=== PATIENT | female | born 1950 | race Caucasian/White ===

== ENCOUNTER → 2018-03-27 18:11 | Outpatient (REF) | payer MEDICARE, SELFPAY ==
[2018-03-27 18:40] LABS: Bilirubin Negative (Negative); Blood Negative (Negative); Clarity Clear; Glucose Negative (Negative); Ketones Negative (Negative); Leukocyte Esterase Trace (Negative); Nitrite Negative (Negative); Urobilinogen 0.2 EU/dL (Up TO 0.2)
[2018-03-27 19:00] LABS: Epithelial Cells Few HPF (Negative); RBC 0-2 (0-2); WBC >50 HPF (0-5)
[2018-03-27 19:01] LABS: Bacteria Moderate HPF (Negative); C & S Indicated? Yes; Casts Negative LPF (Negative); Crystals Negative HPF (Negative); Mucus Negative (Negative)
== END ==
LOC: LBN 18:11
DX: R30.0 Dysuria (principal)
CPT/HCPCS: 87077; 81003; 81015; 87086; 87186

== ENCOUNTER 2018-04-25 02:38 | Outpatient (CLI) | payer MEDICARE, SELFPAY ==
[2018-04-25 08:38] LABS: HCT 35.9 % (36.0-46.0); HGB 11.3 g/dL (12.0-15.5); Mean Corp. HGB Concentration 31.5 g/dL (32.0-36.0); Mean Corpuscular Hemoglobin 21.5 pg (27.0-33.0); Mean Corpuscular Volume 68.4 fL (80-95); Mean Platelet Volume 12.5 fL (8.0-11.0); RBC 5.25 m/cumm (4.00-5.20); RBC Distribution Width 16.7 % (11.7-14.6); White Blood Cell Count 7.19 k/cumm (4.4-10.8)
[2018-04-25 08:46] LABS: Platelet Count 234 x1000/uL (130-400)
[2018-04-25 09:01] LABS: Microalb ug/mg Crea 37.6 ug/mg Cr
[2018-04-25 09:03] LABS: ALT 29 U/L (12-78); AST 21 U/L (15-37); Albumin 3.5 g/dL (3.4-5.0); Alkaline Phosphatase 97 U/L (46-116); Anion Gap 6.8 mmol/L (3-11); BUN 13 mg/dL (7-18); Bilirubin, Total 0.7 mg/dL (0.2-1.0); CO2 31.2 mmol/L (21.0-32.0); CREATININE 0.74 mg/dL (0.55-1.02); Calcium 8.8 mg/dL (8.5-10.1); Chloride 101 mmol/L (98-107); Glucose 123 mg/dL (70-100); Lipase 165 U/L (73-393); Sodium 139 mmol/L (136-145); Total Protein 6.9 g/dL (6.4-8.2)
[2018-04-25 09:19] LABS: Hemoglobin A1C 6.7 % (4.5-6.2)
[2018-04-25 09:24] LABS: Cholesterol 211 mg/dL (50-200); HDL Cholesterol 47 mg/dL (40-60); LDL CHOLESTEROL 143 mg/dL (<100); Triglyceride 135 mg/dL (30-150)
== END 2018-04-25 02:58 ==
DX: E11.9 Type 2 diabetes mellitus without complications (principal); E78.5 Hyperlipidemia, unspecified; F32.9 Major depressive disorder, single episode, unspecified; G47.33 Obstructive sleep apnea (adult) (pediatric); R53.83 Other fatigue; K21.9 Gastro-esophageal reflux disease without esophagitis; L57.0 Actinic keratosis
CPT/HCPCS: 36415; 80053; 80061; 83690; 83721; 85027; 82043; 82570; 83036

== ENCOUNTER 2019-04-02 01:13 | Outpatient (CLI) | payer OTHER, SELFPAY ==
[2019-04-02 10:23] LABS: Hemoglobin A1C 6.5 % (4.5-6.2)
[2019-04-02 10:31] LABS: ALT 30 U/L (14-59); AST 21 U/L (15-37); Albumin 3.6 g/dL (3.4-5.0); Alkaline Phosphatase 90 U/L (46-116); Anion Gap 7.3 mmol/L (3-11); BUN 12 mg/dL (7-18); Bilirubin, Total 0.6 mg/dL (0.2-1.0); CO2 31.7 mmol/L (21.0-32.0); CREATININE 0.84 mg/dL (0.55-1.02); Calcium 9.2 mg/dL (8.5-10.1); Chloride 101 mmol/L (98-107); Glucose 126 mg/dL (70-100); Potassium 4.2 mmol/L (3.5-5.1); Sodium 140 mmol/L (136-145); Total Protein 7.3 g/dL (6.4-8.2)
== END 2019-04-02 01:33 ==
DX: E03.9 Hypothyroidism, unspecified (principal); E11.9 Type 2 diabetes mellitus without complications; E78.5 Hyperlipidemia, unspecified; F32.9 Major depressive disorder, single episode, unspecified; G47.33 Obstructive sleep apnea (adult) (pediatric); K21.9 Gastro-esophageal reflux disease without esophagitis; R53.83 Other fatigue
CPT/HCPCS: 36415; 80053; 83036

== ENCOUNTER 2019-04-24 01:05 | Outpatient (CLI) | payer OTHER, SELFPAY ==
--- NOTE | 2019-04-24 13:24 | DI.MAMMO_ITS ---
EXAM: MAMMO SCREENING CLINICAL HISTORY: screening, Z12.39. TECHNIQUE: Mammograms were interpreted according to the usual protocol including computer analysis w See[employer] CAD system, tomosynthesis and C-view imaging. COMPARISON: Comparison is made with prior images. FINDINGS: The breast tissue is composed of numerous fibronodular densities. There is no dominant mass. There a re no suspicious calcifications and there has been no appreciable interval change when compared with prior images. IMPRESSION: No evidence of malignancy, category 1. Yearly screening mammography is recommended. BI-RADS category B. BI-RADS Cat 1 - Negative. Breast Density - Category B - Scattered areas of fibroglandular density.
== END 2019-04-24 01:25 ==
DX: Z12.31 Encounter for screening mammogram for malignant neoplasm of breast (principal)
CPT/HCPCS: 77063; 77067

== ENCOUNTER 2020-04-13 03:40 | Outpatient (CLI) | payer OTHER, SELFPAY ==
[2020-04-13 10:32] LABS: Hemoglobin A1C 6.9 % (<5.7)
[2020-04-13 10:54] LABS: ALT 31 U/L (14-59); AST 18 U/L (15-37); Albumin 3.8 g/dL (3.4-5.0); Alkaline Phosphatase 89 U/L (46-116); Anion Gap 5.8 mmol/L (3-11); BUN 14 mg/dL (7-18); Bilirubin, Total 0.4 mg/dL (0.2-1.0); CO2 32.2 mmol/L (21.0-32.0); CREATININE 0.83 mg/dL (0.55-1.02); Calcium 9.2 mg/dL (8.5-10.1); Calculated LDL 145 mg/dL (<100); Chloride 103 mmol/L (98-107); Cholesterol 217 mg/dL (<200); Glucose 143 mg/dL (74-106); HDL Cholesterol 49 mg/dL (40-60); Potassium 4.2 mmol/L (3.5-5.1); Sodium 141 mmol/L (136-145); Total Protein 7.2 g/dL (6.4-8.2); Triglyceride 115 mg/dL (<150)
== END 2020-04-13 04:00 ==
DX: I10 Essential (primary) hypertension (principal); Z00.00 Encounter for general adult medical examination without abnormal findings; E78.5 Hyperlipidemia, unspecified; E11.9 Type 2 diabetes mellitus without complications; R53.83 Other fatigue; G47.33 Obstructive sleep apnea (adult) (pediatric); H91.90 Unspecified hearing loss, unspecified ear; E03.9 Hypothyroidism, unspecified; K21.9 Gastro-esophageal reflux disease without esophagitis
CPT/HCPCS: 36415; 80053; 80061; 83036

== ENCOUNTER 2020-05-05 00:49 | Outpatient (CLI) | payer OTHER, SELFPAY ==
--- NOTE | 2020-05-05 07:30 | DI.MAMMO_ITS ---
EXAM: MAMMO SCREENING CLINICAL HISTORY: screening,Z12.39 TECHNIQUE: Mammograms were interpreted according to the usual protocol including computer analysis w [employer] CAD system, tomosynthesis and C-view imaging. COMPARISON: FINDINGS: Breasts are of moderate density with fairly symmetrical distribution of fibroglandular tissue. No do minant intramammary mass or clumped microcalcification is seen. Current examination is compared with previous examinations including March 2019 and there is new radiodensity which is probably a ski n lesion measuring about 14 millimeters in diameter in the medial inferior aspect of the right breast seen on CC and MLO views. I cannot entirely exclude the possibility that this represents a new intr amammary lesion. I would suggest that tangential view of this area be obtained with skin marker, judith ast ultrasound and compression mammographic views may also be indicated. No other significant change seen. IMPRESSION: Additional mammographic views of the right breast and possible right breast ultrasound recommended as described above to evaluate skin lesion versus intramammary mass. BI-RADS Category 0 - Assessment Incomplete: Need additional imaging evaluation Breast Density - Category B - Scattered areas of fibroglandular density
== END 2020-05-05 01:09 ==
DX: Z12.31 Encounter for screening mammogram for malignant neoplasm of breast (principal); R92.8 Other abnormal and inconclusive findings on diagnostic imaging of breast
CPT/HCPCS: 77063; 77067

== ENCOUNTER 2020-05-07 01:11 | Outpatient (CLI) | payer OTHER, SELFPAY ==
--- NOTE | 2020-05-07 | DI.MAMMO_ITS ---
EXAM: MG MAMMO SCREEN CALL BACK UNI AND US BREAST RT LIMITED CLINICAL HISTORY: F/U MAMMO, NEW RADIODENSITY,? SKIN LESION VS MASS TECHNIQUE: Mammograms were interpreted according to the usual protocol including computer analysis w ith CAD system, tomosynthesis and C-view imaging. COMPARISON: 05/05/20 MAMMOGRAM FINDINGS: Additional mammographic views, right breast, and right breast ultrasound are interpreted in conjuncti on. These examinations were obtained to evaluate a well-circumscribed elongated mass-like radiodensi ty seen in the medial aspect of the right breast on recent mammogram. Tangential views do not show t his near the skin surface; however, additional views do confirm the presence of the lobulated mass wi th well-circumscribed borders, which is of fairly low radiodensity mammographically. Ultrasound show s a 15 x 4 millimeter in diameter multiloculated cyst corresponding in appearance to the mammographic ally identified findings. This is seen in approximately the 1 to 2 o'clock position in the breast. No solid mass identified in the breast. No increased vascularity. IMPRESSION: Ultrasonographically benign-appearing lesion appears to correspond with the mammographically identifi ed mass, although the concordance in location is not exact. Follow-up right breast mammogram recomme nded in 6 months, repeat ultrasound may be obtained at that time if clinically indicated. BI-RADS Category 3 - 6 month - Probably Benign Finding: Recommend follow-up mammography in 6 months Breast Density - Category B - Scattered areas of fibroglandular density
== END 2020-05-07 01:31 ==
DX: Z12.31 Encounter for screening mammogram for malignant neoplasm of breast (principal); R92.8 Other abnormal and inconclusive findings on diagnostic imaging of breast
CPT/HCPCS: 76642; 77063; 77067

== ENCOUNTER 2021-01-07 01:45 | Outpatient (CLI) | payer OTHER, SELFPAY ==
--- NOTE | 2021-01-07 13:45 | DI.MAMMO_ITS ---
Exam(s) MAMMO DIAGNOSTIC UNI EXAM: MAMMO DIAGNOSTIC UNI CLINICAL HISTORY: F/U ABNL MAMMO, 6 MONTH FOLLOW UP,R92.8. TECHNIQUE: Craniocaudal and mediolateral oblique Full Field Digital Mammography views of the breast with Computer Aided Diagnosis followed by Tomosynthesis. COMPARISON: 2012 through 07 May 2020 FINDINGS: Mammography/Tomosynthesis: Masses: The previously noted area of ovoid nodularity in the upper inner quadrant of the right breast is no longer seen. This is consistent with resorption of the previously noted cyst. No new masses are seen. Architectural Distortion: None seen. Microcalcifictions: No suspicious pleomorphic-type are seen. Scattered benign calcifications are unc hanged. Skin Thickening/Nipple Retraction: None. IMPRESSION: 1. No evidence of malignancy is noted. 2. Unless there is more urgent need, follow-up screening mammography is recommended, as per [place] [employer] guidelines. BI-RADS Category 2 - Benign Findings Breast Density - Category B - Scattered areas of fibroglandular density A negative radiographic report should not delay biopsy if a dominant or clinically suspicious mass is present. Up to ten percent of cancers are not identified on mammography. A negative report may reinforce clinical impression. Adenosis and dense breasts may obscure an underlying neoplasm. False positive reports average 6 to 10%. Patient will receive a letter notifying them of these results.
== END 2021-01-07 02:05 ==
DX: Z12.31 Encounter for screening mammogram for malignant neoplasm of breast (principal); R92.8 Other abnormal and inconclusive findings on diagnostic imaging of breast; N64.59 Other signs and symptoms in breast
CPT/HCPCS: 77061; 77065; G0279

== ENCOUNTER 2021-04-20 07:37 | Outpatient (CLI) | payer OTHER, SELFPAY ==
--- OUTSIDE RECORDS SUMMARY | 2021-04-20 07:43 | XMS_ITS ---
:1950 Author [facility] Address [address] [place] [address] Care Team Providers Name Role Phone Lab or DI Unavailable Unavailable PROBLEMS Type Condition ICD9-CM Code [id number] Onset Condition SNOMED Code Code Dates Status Problem Fatigue R53.83 Active 50206156 Problem Family history of Z80.0 Active 43 2667192 malignant neoplasm of digestive organ Problem Major depressive F32.9 Active 370 006809 disorder Problem Obstructive sleep G47.33 Active 78 634186 apnea Problem Essential I10 Active 58125583 hypertension Problem Actinic keratosis L57.0 Active 85 6006 Problem Hx of colonic polyp Z86.010 Active 765227654 Problem Hyperlipidemia E78.5 Active 39097 004 Problem Polyp of colon K63.5 Active 81475 003 Problem Gastro-esophageal K21.9 Active 26 0337215 reflux disease without esophagitis Problem DM w/o complication E11.9 Active 358280672 type II Problem Cochlear implant in Z96.[address] ALLERGIES Substance Reaction Event Type Date Status Penicillin V Potassium Skin rash Drug Allergy May, Activ e Sulfacetamide Sodium Unknown Drug Allergy May, Active Codeine Sulfate GI pain Drug Allergy May, Active Ampicillin Unknown Drug Allergy May, Active Esomeprazole Sodium Bloody stool Drug Allergy May, Active Cefuroxime Sodium Unknown Drug Allergy May, Active Ciprofloxacin Unknown Drug Allergy May, Active ENCOUNTERS Encounter Location Date Diagnosis SURGERY [address] 06 May, 2020 [place] [address] 06 May, 2020 [place] [address] [facility] [address] 03 May, 2020 [place] [address] [facility] [address] 02 May, [address] [place] [address] Z12.11 ; Enc ounter for drug screening Z 02.83 ; Alcohol screenin g Z13.89 ; Hx of colonic po lyp Z86.010 ; DM w/o complication typ e II E11.9 ; Obstructive sl eep apnea G47.33 ; Essenti al hypertension I10 ; Cochlear implant in place Z96.21 and Famil y history of colon cancer in father Z80.[address] 18 Mar, [address] Dec, [address] Aug, [address] Apr, [place] [address] IMMUNIZATIONS No Known Immunizations SOCIAL HISTORY Qualifiers Date Former Smoker REASON FOR REFERRAL FUNCTIONAL STATUS PLAN OF CARE VITAL SIGNS MEDICATIONS Medication Instructions Dosage Frequency Start End Duration Statu s Date Date Aspirin Adult Low Orally Once 1 tablet A ctive Strength 81 MG every other day Cholecalciferol 50 Orally Once a 1 capsule 24h 30 da y(s) Active MCG (1999) day Ibuprofen 400 MG Orally Three 1 tablet A ctive times a day, PRN Simvastatin 10 MG Orally Once a 1 tablet in 24h 30 d ay(s) Active day the evening clonazePAM 0.5 MG Orally Once a 1 tablet at Active day, PRN bedtime Omeprazole 20 MG Orally Once a 1 capsule 30 24h 30 d ay(s) Active day minutes before morning meal metFORMIN HCl 500 Orally Once a 1 tablet with 24h Active MG day a meal Melatonin 5 MG Orally Once a 1 tablet in 24h 30 day( s) Active day the evening Magnesium Oxide Orally Once a 1 tablet A ctive 400 MG day, HS FLUoxetine HCl 40 Orally Once a 1 capsule 24h 30 day (s) Active MG day Metoprolol Orally BID 1 tablet with 12h Acti ve Tartrate 25 MG food Nystatin 550084 Externally 1 application Active UNIT/GM Twice a day, PRN PROCEDURES Procedure Date Ordered Result Body Site SBIRT screening 2020-06-01 N/A RESULTS Name Result Date Reference Range GLUCOSE POINT OF CARE 2020-06-05 GLUCOSE 145 74-118 COMMENT1 [id number] 2020-06-02 COVID-19 Not Detected Not Detected MULTIPLE LABS 2020-04-13 DRUG SCREEN COLLECTION 2016-12-30 DRUG SCREEN COLLECTION 2016-09-09 QUANTIFERON-TB GOLD 2016-05-25 QUANTIFERON TB GOLD Negative Negative QuantiFerron criteria [facility] QUANTIFERON TB AG VALUE 0.15 QUANTIFERON NIL VALUE 0.02 QUANTIFERON MITOGEN VALUE >10.00 QFT TB AG MINUS NIL VALUE 0.13 INTERPRETATION: [facility] REASON FOR VISIT Colonoscopy, Colonoscopy, preop covid test DOS 06/05, Preop Colonoscopy Clinic visit, [facility]: Colonoscopy, Referred for Colonoscopy, Chart update for General surg., DRUG SCREEN, drug screen, LAB Insurance Providers [facility] Member Patient Patient Patient Patient Patient Subscriber Subscriber Subscriber Group Insurance Plan Plan Plan Plan ID Relationship Address Phone Name Date of ID Name Date of No Type Insurance Insurance Insurance Coverage to Subscriber Address Phone Name Dates [facility] [id number] [place] [id number] HEALTHCARE [id number] MEDICARE [place] MEDIC[place] COM[place] [facility] COMPLETE [phone] SELF PAY self [place] [id number] [address] [place] [id number] [facility] (GENERAL) HISTORY Type Description Date Medical History Actinic keratosis ( 12/22/15) Medical History 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 Medical History Colon polyp Medical History Depressive disorder Medical History Diabetes Mellitus ( 03/19/13) Medical History Family hx of colon ca, pt had HP polyps Medical History Fatigue ( 03/28/14) Medical History GERD Medical History Hearing loss, Secondary to rubella and h ead truma: Cochlear implant Medical History Hyperlipidemia (03/19/13) Medical History Obstructive sleep apnea ( 09/25/14) Medical History Other thalassemia (08/30/08) Medical History Skin lesion of left lower extremity Surgical History Colonoscopy, hx of Diverticulosis, 2 HP polps 06/02/2014 Hospitalization History See above
[2021-04-20 12:39] LABS: ALT 37 U/L (14-59); AST 26 U/L (15-37); Albumin 3.9 g/dL (3.4-5.0); Alkaline Phosphatase 85 U/L (46-116); Anion Gap 8.6 mmol/L (3-11); BUN 14 mg/dL (7-18); Bilirubin, Total 0.5 mg/dL (0.2-1.0); CO2 31.4 mmol/L (21.0-32.0); CREATININE 0.9 mg/dL (0.55-1.02); Calcium 9.3 mg/dL (8.5-10.1); Chloride 102 mmol/L (98-107); Glucose 136 mg/dL (74-106); Sodium 142 mmol/L (136-145); Total Protein 7.6 g/dL (6.4-8.2)
== END 2021-04-20 07:38 | disposition home or self-care (01) ==
LOC: LOS 07:41
DX: E11.9 Type 2 diabetes mellitus without complications (principal); R53.83 Other fatigue; K21.9 Gastro-esophageal reflux disease without esophagitis
CPT/HCPCS: 36415; 80053; 83036

== ENCOUNTER 2021-07-05 00:44 | Outpatient (CLI) | payer MEDICARE, SELFPAY ==
--- NOTE | 2021-07-05 11:19 | DI.MAMMO_ITS ---
Exam(s) MAMMO SCREENING EXAM: MAMMO SCREENING CLINICAL HISTORY: screening,z12.39. TECHNIQUE: Bilateral full field digital CC and MLO mammographic images were obtained with 3D tomosyn thesis and utilizing computer aided detection (CAD). COMPARISON: Prior mammograms dating back to 2012, the most recent being April 2020 and diagnostic follow-up of December 2020.. Prior right breast limited ultrasound examination of the 05/07/2020 was also reviewed.. Significant f amily history. Her sister diagnosed breast cancer FINDINGS: Previously described nodule (which was apparently shown to be a cyst on ultrasound) in the medial asp ect of the right breast is again no longer seen. This was evident on the April 2020 study and resol araceli on the December 1999 study. It is again no longer seen There is a microcalcification in the right breast, lateral of center, best seen on the CC view locate d 12 cm in from the nipple. This is unchanged from December 2020 and April 2020. Also exhibits only min imal change from March 2019. However, is more prominent than on the 2017 images. Small benign-appearing nodules in the right breast remain unchanged from prior studies. There also mu ltiple benign micro and macro calcifications again noted bilaterally. There is no significant architectural distortion nor skin thickening-retraction. IMPRESSION: 1. No radiographic evidence of malignancy in left breast. 2. In the right breast there has been no recurrence of the previously described medially located nodu le, apparently shown to be a cyst on prior ultrasound examination. 3. In the right breast there is a lateral of center microcalcification group seen on CC view which is basically unchanged from March 2019 but was not evident on the 2017 images. Probably benign. Nev ertheless, recommend follow-up right breast mammogram in 6 months to ensure stability. BI-RADS Category 3 - 6 month - Probably Benign Finding: Recommend follow-up mammography in 6 months Breast Density - Category B - Scattered areas of fibroglandular density Breast density Category C or D implies that the patient has dense breast tissue. Dense breast tissue can make it harder to find cancer on a mammogram. Dense breast tissue is also associated with an incr eased risk of breast cancer. This information about the result of the mammogram report was provided to the patient to raise their awareness. Use this report when you speak with the patient about their risks for breast cancer, which includes their family history. At that time, you may recommend additional screening tests (Ultrasoun d or MRI) as these tests may add significant information. A negative radiographic report should not delay biopsy if a dominant or clinically suspicious mass is present. Up to ten percent of cancers are not identified on mammography. A negative report may reinforce clinical impression. Adenosis and dense breasts may obscure an underlying neoplasm. False positive reports average 6 to 10%. Patient will receive a letter notifying them of these results.
== END 2021-07-05 01:04 ==
DX: Z12.31 Encounter for screening mammogram for malignant neoplasm of breast (principal); R92.0 Mammographic microcalcification found on diagnostic imaging of breast
CPT/HCPCS: 77063; 77067

== ENCOUNTER → 2021-12-21 02:00 | Outpatient (CLI) | payer MEDICARE, SELFPAY ==
--- NOTE | 2021-12-21 14:55 | DI.CTLCSR_ITS ---
Exam(s) CT CHEST LUNG CANCER SCREEN EXAM: CT CHEST LUNG CANCER SCREEN CLINICAL HISTORY: Screening for lung cancer, personal h/o smoker, Z87.891 TECHNIQUE: CT examination of the chest was performed utilizing low-dose lung cancer screening protoc ol. COMPARISON: No exams were available for comparison FINDINGS: Images obtained through the upper abdomen show unremarkable appearance of visualized portions of the liver, spleen, pancreas, adrenals, and kidneys. There is no mediastinal or hilar adenopathy. Mediastinal vascular structures appear intact by noncon trast criteria. Tracheobronchial tree appears intact. No pleural effusion or pleural-based mass. There is mosaic attenuation of the lungs which may represent air trapping. There are couple of tiny calcified pulmonary nodules and there are multiple noncalcified pulmonary nodules seen bilaterally, t he largest is a 9 millimeter in diameter nodule with an irregular border in the right lung base. Thi s is a suspicious finding, additional evaluation PET CT suggested for further evaluation.. IMPRESSION: Lung RADS Cat 4A - Suspicious: Findings for which additional diagnostic testing and/or tissue samplin g recommended PET CT recommended for further evaluation.. Lung-RADS 1.0 CATEGORIES: Category 0 - Prior chest CT exam(s) being located for comparison. Category 1 - Annual screening in 12 months. No nodules or definitely benign nodules. Category 2 - Annual screening in 12 months. Benign appearance. Nodules with low likelihood of becomin g active cancer. Category 3 - 6-month follow-up. Probably benign. Short-term follow-up suggested. Nodules with low lik elihood of becoming active cancer. Category 4A - 3-month follow-up and CT/PET if >8 mm in size. Suspicious finding. Findings which requi re additional testing. Category 4B - Findings which require additional testing and tissue sampling. Suspicious finding. Category 4X - Category 3 or 4 nodules with additional features or imaging findings that increases the suspicion of malignancy. Modifier S- Potentially clinically significant finding. (Non lung cancer) RADIATION DOSE DELIVERED: 71.3mGy.cm Total DLP 1.84mGy CTDIvol 71.3mGy.cm Total DLP !Error CTDIvol RADIATION OPTIMIZATION: All CT scans at this facility use at least one of these dose optimization te chniques: automated exposure control; mA and/or kV adjustment per patient size (includes targeted exa ms where dose is matched to clinical indication); or iterative reconstruction.
== END ==
DX: Z12.2 Encounter for screening for malignant neoplasm of respiratory organs (principal); Z87.891 Personal history of nicotine dependence; R91.8 Other nonspecific abnormal finding of lung field
CPT/HCPCS: 71271

== ENCOUNTER 2022-04-14 04:07 | Outpatient (CLI) | payer MEDICARE, SELFPAY ==
[2022-04-14 09:44] LABS: Hemoglobin A1C 6.7 % (<5.7)
[2022-04-14 10:24] LABS: ALT 29 U/L (14-59); AST 20 U/L (15-37); Albumin 3.6 g/dL (3.4-5.0); Alkaline Phosphatase 85 U/L (46-116); Anion Gap 8.2 mmol/L (3-11); BUN 13 mg/dL (7-18); Bilirubin, Total 0.4 mg/dL (0.2-1.0); CO2 30.8 mmol/L (21.0-32.0); CREATININE 0.8 mg/dL (0.55-1.02); Calcium 9.1 mg/dL (8.5-10.1); Calculated LDL 146 mg/dL (<100); Chloride 102 mmol/L (98-107); Cholesterol 224 mg/dL (<200); Estimated GFR 79.22 (mL/min/1.73m2); Glucose 121 mg/dL (74-106); HDL Cholesterol 56 mg/dL (40-60); Potassium 3.7 mmol/L (3.5-5.1); Sodium 141 mmol/L (136-145); Total Protein 7.8 g/dL (6.4-8.2); Triglyceride 114 mg/dL (<150)
[2022-04-14 18:36] LABS: Albumin ug/mg Crea 109 (<30); Albumin, Ur 21.7 mg/dL (See Note); Creatinine, Ur 198.5 mg/dL (See Note)
== END 2022-04-14 04:08 | disposition home or self-care (01) ==
LOC: LBO 04:07
DX: E11.9 Type 2 diabetes mellitus without complications (principal); F32.9 Major depressive disorder, single episode, unspecified; R53.83 Other fatigue; R63.8 Other symptoms and signs concerning food and fluid intake; E78.5 Hyperlipidemia, unspecified
CPT/HCPCS: 80053; 80061; 82043; 82570; 83036

== ENCOUNTER 2022-04-21 03:07 | Outpatient (CLI) | payer MEDICARE, SELFPAY ==
--- NOTE | 2022-04-21 14:02 | DI.CT_ITS ---
Exam(s) CT CHEST WO EXAM: CT CHEST WO CLINICAL HISTORY: 3 month f/u,r93.89.rt lung nodule TECHNIQUE: Imaging Protocol: Axial computed tomography images with coronal and sagittal reformatted images were created and reviewed CONTRAST MATERIAL: Intravenous: Omnipaque 350 Contrast volume:structured data ml. COMPARISON: CT CT CHEST LUNG CANCER SCREEN from 12/21/2021 FINDINGS: Tracheobronchial tree: No bronchiectasis or mucous plugging. Mediastinum and Sabrina: No dominant adenopathy or fluid collection. Pulmonary parenchyma: No consolidation. Stable size and appearance of a 7 x 6 x 9 millimeter nodule in the posterior right lower lobe. There are other smaller nodules both upper lobes which are stable as well. Pleura: No effusion or pneumothorax. Heart: The heart is not dilated. Moderate coronary artery calcifications are seen. Aorta: Ascending aorta 3.3 cm.. [id number] atherosclerotic changes. Upper abdomen: Unremarkable. Lymph nodes: Within normal limits. Bones: Normal. Tubes, Catheters, and Lines: None Soft tissues: Unremarkable. IMPRESSION: Stable 9 millimeter maximal dimension right lower lobe pulmonary nodule. Six-month follow-up recommended. RADIATION DOSE DELIVERED: 569.26mGy.cm Total DLP DATA REPOSITORY: All CT scans at this facility are submitted to the National Radiology Data Registry (NRDR) Dose Index Registry (DIR) with the [employer] (ACR). RADIATION OPTIMIZATION: All CT scans at this facility use at least one of these dose optimization te chniques: automated exposure control; mA and/or kV adjustment per patient size (includes targeted exa ms where dose is matched to clinical indication); or iterative reconstruction.
== END 2022-04-21 03:27 ==
LOC: DI 03:07
DX: R93.89 Abnormal findings on diagnostic imaging of other specified body structures (principal); R91.1 Solitary pulmonary nodule
CPT/HCPCS: 71250

== ENCOUNTER 2022-10-06 01:41 | Outpatient (CLI) | payer MEDICARE, SELFPAY ==
--- NOTE | 2022-10-06 09:15 | DI.CT_ITS ---
Exam(s) CT CHEST WO EXAM: CT CHEST WO CLINICAL HISTORY: 6 month f/u,F/U ABNL CT, R93.89,RLL PULMONARY NODULE TECHNIQUE: Imaging Protocol: Axial computed tomography images with coronal and sagittal reformatted images were created and reviewed CONTRAST MATERIAL: Intravenous: Omnipaque 350 Contrast volume:structured data ml. COMPARISON: CT ABD PELVIS WO CONTRAST from 06/26/[address] CHEST LUNG CANCER SCREEN from 12/21/[address] CHEST WO from 04/21/2022 FINDINGS: Pulmonary parenchyma: No consolidation. No dominant measurable mass. Nodules: Stable 9 millimeter nodule right lower lobe lung base. This nodule was present on the abdom en and pelvic CT of 2008. Multiple other tiny scattered nodules are noted bilaterally in both upper and lower lobes.. Tracheobronchial tree: No bronchiectasis or mucous plugging. Mediastinum and Sabrina: No dominant adenopathy or fluid collection. Pleura: No effusion or pneumothorax. Heart: The heart is mildly dilated. Coronary artery calcifications are seen. Aorta: Thoracic aorta non-dilated. Mild atherosclerotic changes. Upper abdomen: Unremarkable. Bones: Milddegenerative changes. Soft tissues: Unremarkable. IMPRESSION: Multiple stable bilateral pulmonary nodules, the largest at the right lung base measuring 9 millimete rs. Recommend low-dose screening CT in 1 year from now. RADIATION DOSE DELIVERED: 585.01mGy.cm Total DLP DATA REPOSITORY: All CT scans at this facility are submitted to the National Radiology Data Registry (NRDR) Dose Index Registry (DIR) with the [employer] (ACR). RADIATION OPTIMIZATION: All CT scans at this facility use at least one of these dose optimization te chniques: automated exposure control; mA and/or kV adjustment per patient size (includes targeted exa ms where dose is matched to clinical indication); or iterative reconstruction.
== END 2022-10-06 02:01 ==
LOC: DI 01:41
PROVIDERS: PCP Nurse Practitioner Family; Visit Provider Nurse Practitioner Family
DX: R91.8 Other nonspecific abnormal finding of lung field (principal)
CPT/HCPCS: 71250

== ENCOUNTER 2023-04-27 05:05 | Outpatient (CLI) | payer MEDICARE, SELFPAY ==
[2023-04-27 12:38] LABS: ALT 25 U/L (14-59); AST 17 U/L (15-37); Albumin 3.7 g/dL (3.4-5.0); Alkaline Phosphatase 90 U/L (46-116); Anion Gap 6.1 mmol/L (3-11); BUN 16 mg/dL (7-18); Bilirubin, Total 0.5 mg/dL (0.2-1.0); CO2 29.9 mmol/L (21.0-32.0); CREATININE 0.9 mg/dL (0.55-1.02); Calcium 9.5 mg/dL (8.5-10.1); Calculated LDL 121 mg/dL (<100); Chloride 101 mmol/L (98-107); Cholesterol 196 mg/dL (<200); Estimated GFR 68.35 (mL/min/1.73m2); Glucose 118 mg/dL (74-106); HDL Cholesterol 56 mg/dL (40-60); Potassium 4.1 mmol/L (3.5-5.1); Sodium 137 mmol/L (136-145); Triglyceride 98 mg/dL (<150)
[2023-04-27 12:47] LABS: Hemoglobin A1C 6.5 % (<5.7)
== END 2023-04-27 05:06 | disposition home or self-care (01) ==
LOC: LOS 05:05
PROVIDERS: PCP Nurse Practitioner Family; Visit Provider Nurse Practitioner Family
DX: E78.5 Hyperlipidemia, unspecified (principal); E11.9 Type 2 diabetes mellitus without complications
CPT/HCPCS: 36415; 80053; 80061; 83036

== ENCOUNTER → 2023-05-09 01:13 | Outpatient (CLI) | payer MEDICARE, SELFPAY ==
--- NOTE | 2023-05-09 07:45 | DI.MAMMO_ITS ---
Exam(s) MAMMO SCREENING EXAM: MAMMO SCREENING CLINICAL HISTORY: screening,Z12.39 TECHNIQUE: Mammograms were interpreted according to the usual protocol including computer analysis w [employer] CAD system, tomosynthesis and C-view imaging. COMPARISON: 2013 through 2020 FINDINGS: The breasts are composed of scattered fibroglandular densities, Breast Density category B. No suspicious masses or suspicious microcalcifications are seen. Coarse, benign calcifications again noted bilaterally. No skin thickening or abnormal axillary lymph nodes are seen. There has been no significant change from prior exams. IMPRESSION: BI-RADS Cat 2 - Benign Findings Yearly screening mammography is recommended. Breast Density - Category B, scattered fibroglandular densities. A negative radiographic report should not delay biopsy if a dominant or clinically suspicious mass is present. Up to ten percent of cancers are not identified on mammography. A negative report may reinforce clinical impression. Adenosis and dense breasts may obscure an underlying neoplasm. False positive reports average 6 to 10%. Patient will receive a letter notifying them of these results.
== END ==
PROVIDERS: PCP Nurse Practitioner Family; Visit Provider Nurse Practitioner Family
DX: Z12.31 Encounter for screening mammogram for malignant neoplasm of breast (principal)
CPT/HCPCS: 77063; 77067

== ENCOUNTER → 2023-10-19 04:03 | Outpatient (CLI) | payer MEDICARE, SELFPAY ==
--- NOTE | 2023-10-19 08:00 | DI.CTLCSR_ITS ---
Exam(s) CT CHEST LUNG CANCER SCREEN EXAM: CT CHEST LUNG CANCER SCREEN CLINICAL HISTORY: Screening for lung cancer,FORMER SMOKER, Z87.891 TECHNIQUE: Imaging Protocol: Axial computed tomography images with coronal and sagittal reformatted images were created and reviewed. Low dose screening protocol. COMPARISON: CT ABD PELVIS WO CONTRAST from 06/26/[address] CHEST LUNG CANCER SCREEN from 12/21/[address] CHEST WO from 04/21/[address] CHEST WO from 10/06/2022 FINDINGS: Tracheobronchial tree: No bronchiectasis or mucus plugging.. Mediastinum and Sabrina: No dominant adenopathy or fluid collection. Pulmonary parenchyma: No consolidation or dominant measurable mass. No visible emphysematous changes. Lung Nodules: Scattered bilateral micro nodules. Stable nodule right lung base measuring 7 x 6 x 9 millimeters. Pleura: No effusion. No pneumothorax. Heart: The heart is mildly dilated. Moderate coronary artery calcifications are seen. Aorta: Thoracic aorta non-dilated. Upper abdomen: Nonobstructing stone left kidney. Bones: Unremarkable for age. Soft Tissues: Unremarkable. IMPRESSION: Stable bilateral pulmonary nodules. Lung RADS Cat 2 - Benign Appearance / Behavior: Nodules with a very low likelihood of becoming a clin ically active cancer due to size or lack of growth Lung-RADS 1.0 CATEGORIES: Category 0 - Prior chest CT exam(s) being located for comparison. Category 1 - Annual screening in 12 months. No nodules or definitely benign nodules. Category 2 - Annual screening in 12 months. Benign appearance. Nodules with low likelihood of becomin g active cancer. Category 3 - 6-month follow-up. Probably benign. Short-term follow-up suggested. Nodules with low lik elihood of becoming active cancer. Category 4A - 3-month follow-up and CT/PET if >8 mm in size. Suspicious finding. Findings which requi re additional testing. Category 4B - Findings which require additional testing and tissue sampling. Category 4X - Category 3 or 4 nodules with additional features or imaging findings that increases the suspicion of malignancy. Modifier S- Potentially clinically significant findings (non lung cancer) RADIATION DOSE DELIVERED: Total DLP DATA REPOSITORY: All CT scans at this facility are submitted to the National Radiology Data Registry (NRDR) Dose Index Registry (DIR) with the [employer] (ACR). RADIATION OPTIMIZATION: All CT scans at this facility use at least one of these dose optimization te chniques: automated exposure control; mA and/or kV adjustment per patient size (includes targeted exa ms where dose is matched to clinical indication); or iterative reconstruction.
== END ==
PROVIDERS: PCP Nurse Practitioner Family; Visit Provider Nurse Practitioner Family
DX: Z87.891 Personal history of nicotine dependence (principal); Z12.2 Encounter for screening for malignant neoplasm of respiratory organs; R91.1 Solitary pulmonary nodule
CPT/HCPCS: 71271

== ENCOUNTER 2023-10-27 13:04 | Outpatient (REF) | payer MEDICARE, SELFPAY ==
[2023-10-27 21:28] LABS: HCT 41.2 % (36.0-46.0); HGB 12.6 g/dL (11.2-15.7); MCHC 30.6 % (32.0-36.0); MPV 11.7 fL (8.0-11.0); Platelet Count 300 10^3/uL (130-400); RBC 5.99 10^6/uL (3.93-5.22); RDW 15.6 % (11.7-14.6); WBC 7.72 10^3/uL (4.4-10.8)
[2023-10-27 21:38] LABS: MCV 69 fL (80-95)
[2023-10-27 21:47] LABS: Hemoglobin A1C 6.5 % (<5.7)
[2023-10-27 21:50] LABS: Ferritin 82 ng/mL (8-252)
[2023-10-27 22:01] LABS: Iron 91 ug/dL (50-170)
== END 2023-10-27 13:05 | disposition home or self-care (01) ==
LOC: LBN 13:04
PROVIDERS: PCP Nurse Practitioner Family; Visit Provider Nurse Practitioner Family
DX: D64.9 Anemia, unspecified (principal); D56.8 Other thalassemias; E11.9 Type 2 diabetes mellitus without complications
CPT/HCPCS: 85027; 82728; 83036; 83540

== ENCOUNTER → 2024-01-04 04:20 | Outpatient (CLI) | payer MEDICARE, SELFPAY ==
--- NOTE | 2024-01-04 08:15 | DI.CT_ITS ---
Exam(s) CT LUMBAR SPINE WO EXAM: CT LUMBAR SPINE WO CLINICAL HISTORY: fall, injury, back pain, dorsalgia, M54.9. TECHNIQUE: Imaging Protocol: Axial computed tomography images with coronal and sagittal reformatted images were created and reviewed COMPARISON: No exams were available for comparison FINDINGS: Bones: There are no fractures, listhesis, nor pars defects. There are no lytic osseous lesions evide nt. INDIVIDUAL LEVELS: T12-L1:No disc herniation nor canal stenosis. Facet joints unremarkable. No foraminal stenosis. L1-2: No disc herniation nor canal stenosis. Facet joints unremarkable. No foraminal stenosis. L2-3: No disc herniation nor canal stenosis. Facet joints unremarkable. No Foraminal stenosis L3-4: This level exhibits posterolateral right disc protrusion which extends posteriorly and inferio rly for a distance of 2 cm caudally from the disc space. It measures 8 mm wide by 6 mm AP. There is also some moderate central canal stenosis at this level. No significant foraminal stenosis on the r ight side. Some foraminal stenosis noted on the left side due to more prominent disc height loss. F acet joints unremarkable. No foraminal stenosis. L4-5: Annular bulging without a disc herniation. Mild central canal stenosis. Mild bilateral jhon inal stenosis. Mild degenerative changes in the facet joints. L5-S1: Chronic advanced disc space narrowing and vacuum phenomenon within the disc space. No disc h erniation. Central canal dimensions are lower normal. There is some bilateral foraminal stenosis du e to the vertebral disc height loss. There is also mild degenerative change in the facet joints bila terally. The visualized sacroiliac joints and sacrum appear unremarkable. PARASPINAL SOFT TISSUES: Visualized paraspinal tissues appear unremarkable. Incidentally noted is an 8 millimeter nodule in the right lung base. IMPRESSION: 1. No acute fractures nor listhesis. 2. Prominent disc protrusion posterolateral right sided L3-4 level which extends into the lateral rec ess and down the right side for distance of 2 cm behind the right-side of the L4 vertebral body. Rec ommend follow-up MRI. 3. Other multilevel findings as described above. Incidentally noted is a spiculated nodule in the right lower lobe posterior basal segment, this measu ring 8 mm. Requires close follow-up. Recommend chest CT scan. No pleural effusions seen. RADIATION DOSE DELIVERED: 800.95mGy.cm Total DLP DATA REPOSITORY: All CT scans at this facility are submitted to the National Radiology Data Registry (NRDR) Dose Index Registry (DIR) with the [employer] (ACR). RADIATION OPTIMIZATION: All CT scans at this facility use at least one of these dose optimization te chniques: automated exposure control; mA and/or kV adjustment per patient size (includes targeted exa ms where dose is matched to clinical indication); or iterative reconstruction.
--- NOTE | 2024-01-04 08:15 | DI.CT_ITS ---
Exam(s) CT PELVIC WO EXAM: CT PELVIC WO CLINICAL HISTORY: fall, injury, r/o fx, pelvic pain, back pain, groin pain, R10.2, M54.9,. TECHNIQUE: Imaging Protocol: Axial computed tomography images with coronal and sagittal reformatted images were created and reviewed CONTRAST MATERIAL: Intravenous: none Oral: None COMPARISON: CT CT LUMBAR SPINE WO from 01/04/2024 FINDING: PELVIS: OSSEOUS: There fractures of the left transverse processes of L3 and L4, probably acute or subacute. No pelvic nor hip fractures evident.No significant osseous lesions evident.Chronic disc space narrowi ng L5-S1 noted on sagittal image. ANTERIOR ABDOMINAL WALL/GI:No evidence of significant anterior abdominal wall nor inguinal hernia in the pelvis evident.No obvious bowel obstruction. No evidence of appendicitis.No evidence of acute si gmoid diverticulitis.No free fluid in the pelvis. LYMPH NODES: There is no intrapelvic nor inguinal adenopathy. URINARY BLADDER: No calculi nor obvious masses evident REPRODUCTIVE: Uterus and adnexal regions unremarkable. No free fluid.. No abnormal subcutaneous ecchymosis/hematomas. IMPRESSION: 1. There fractures of the left transverse process is of L3 and L4, probably acute or subacute. 2. No other pelvic fractures identified. 3. See separate lumbar spine dictation. This patient appears to have a significant L3-4 disc herniation RADIATION DOSE DELIVERED: 592.04mGy.cm Total DLP DATA REPOSITORY: All CT scans at this facility are submitted to the National Radiology Data Registry (NRDR) Dose Index Registry (DIR) with the [employer] (ACR). RADIATION OPTIMIZATION: All CT scans at this facility use at least one of these dose optimization te chniques: automated exposure control; mA and/or kV adjustment per patient size (includes targeted exa ms where dose is matched to clinical indication); or iterative reconstruction.
== END ==
PROVIDERS: PCP Nurse Practitioner Family; Visit Provider Physician Assistant
DX: M54.9 Dorsalgia, unspecified (principal); R10.2 Pelvic and perineal pain; R10.30 Lower abdominal pain, unspecified
CPT/HCPCS: 72131; 72192

== ENCOUNTER 2024-03-14 15:20 | Outpatient (REF) | payer MEDICARE, SELFPAY ==
[2024-03-14 21:16] LABS: HGB 12.1 g/dL (11.2-15.7); MCH 20.7 pg (27.0-33.0); MCHC 30.3 % (32.0-36.0); MPV 11.1 fL (8.0-11.0); Platelet Count 377 10^3/uL (130-400); RBC 5.85 10^6/uL (3.93-5.22); RDW 15.9 % (11.7-14.6); RDW-SD 37.7 fL; WBC 8.75 10^3/uL (4.4-10.8)
[2024-03-14 21:23] LABS: ESR 78 mm/hr (0-30)
[2024-03-14 21:30] LABS: Anion Gap 9.6 mmol/L (3-11); BUN 19 mg/dL (7-18); C-Reactive Protein 3.37 mg/dL (<or=0.5); CO2 29.4 mmol/L (21.0-32.0); CREATININE 0.8 mg/dL (0.55-1.02); Calcium 10.2 mg/dL (8.5-10.1); Chloride 101 mmol/L (98-107); Estimated GFR 78.24 (mL/min/1.73m2); Glucose 111 mg/dL (74-106); Potassium 4.6 mmol/L (3.5-5.1); Sodium 140 mmol/L (136-145); Uric Acid 3.9 mg/dL (2.6-6.0)
[2024-03-14 21:37] LABS: MCV 68 fL (80-95)
[2024-03-14 21:47] LABS: COMMENT (LAB VIEW ONLY) 123.71 mg/dL; Microalb ug/mg Crea 60.1 ug/mg Cr
[2024-03-18 09:14] LABS: Lyme Ab w Rflx to Lyme Confirm Negative (Negative)
[2024-03-19 00:56] LABS: Anaplasma phagocytophilum Negative (Negative); B. miyamotoi PCR Negative (Negative); Babesia divergens/MO-1 Negative (Negative); Babesia duncani Negative (Negative); Babesia microti Negative (Negative); Ehrlichia chaffeensis Negative (Negative); Ehrlichia ewingii/canis Negative (Negative); Ehrlichia muris eauclairensis Negative (Negative)
== END 2024-03-14 15:21 | disposition home or self-care (01) ==
LOC: LBN 15:20
PROVIDERS: PCP Nurse Practitioner Family; Visit Provider Nurse Practitioner Family
DX: M79.10 Myalgia, unspecified site (principal); M25.511 Pain in right shoulder; R52 Pain, unspecified
CPT/HCPCS: 80048; 85027; 85652; 87798; 82043; 82570; 84550; 86140; 86618

== ENCOUNTER 2024-03-15 00:42 | Outpatient (CLI) | payer MEDICARE, SELFPAY ==
--- NOTE | 2024-03-15 10:40 | DI.RAD_ITS ---
Exam(s) XR SHOULDER RT COMPLETE 2+V EXAM: XR SHOULDER RT COMPLETE 2+V CLINICAL HISTORY: decreased Range of motion, rt shoulder pain, m25.511. TECHNIQUE: 2D digital imaging was performed of the right shoulder. Five images were obtained. AP, Grashey, Y-view and axillary views were obtained. COMPARISON: No exams were available for comparison FINDINGS: BONES: No acute fracture is present. No bony destructive lesion is seen. JOINTS: No dislocation present. The glenohumeral joint is well maintained. There is mild narrowing o f the acromioclavicular joint. SOFT TISSUE: Normal. IMPRESSION: Mild narrowing of the acromioclavicular joint. Otherwise unremarkable examination. DATA REPOSITORY: RADIATION DOSE DELIVERED:
== END 2024-03-15 01:02 ==
LOC: DI 00:42
PROVIDERS: PCP Nurse Practitioner Family; Visit Provider Nurse Practitioner Family
DX: M25.511 Pain in right shoulder (principal)
CPT/HCPCS: 73030

== ENCOUNTER 2024-03-21 07:14 | Outpatient (CLI) | payer MEDICARE, SELFPAY ==
--- NOTE | 2024-03-21 08:00 | DI.RAD_ITS ---
Exam(s) XR CHEST 2V PA LATERAL EXAM: XR CHEST 2V PA LATERAL CLINICAL HISTORY: chest pain WITH RESPIRATIONS,R07.9 TECHNIQUE: 2D digital imaging was performed. Two views. COMPARISON: CT CT CHEST LUNG CANCER SCREEN from 10/19/2023 FINDINGS: HEART: Normal size. Aorta: Not dilated. PULMONARY VASCULATURE: Normal. MEDIASTINUM: Unremarkable. LUNGS: Clear. PLEURAL SPACE: No pleural effusion or pneumothorax. BONE:Unremarkable for age. SOFT TISSUES: Unremarkable. IMPRESSION: No acute abnormality. DATA REPOSITORY: RADIATION DOSE DELIVERED:
== END 2024-03-21 07:34 ==
LOC: DI 07:15
PROVIDERS: PCP Nurse Practitioner Family; Visit Provider Nurse Practitioner Family
DX: R07.9 Chest pain, unspecified (principal)
CPT/HCPCS: 71046

== ENCOUNTER 2024-03-28 02:23 | Outpatient (CLI) | payer MEDICARE, SELFPAY ==
--- NOTE | 2024-03-28 08:00 | DI.DEXA_ITS ---
Exam(s) XR DEXA BONE DENSITY W/WO RASHEL EXAM: XR DEXA BONE DENSITY W/WO RASHEL CLINICAL HISTORY: screening for osteoporosis, POSTMENOPAUSAL, Z78.0 TECHNIQUE: [employer] C densitometer analysis of left hip and lumbar spine . Lateral survey i mage of the thoracic and lumbar spine. COMPARISON: CR LUMBAR SPINE COMPLETE from 08/29/2011 FINDINGS: Lateral view of the thoracic and lumbar spine shows no evidence of compression fractures. Bone mineral density measurements of the lumbar spine correspond to a total T-score of -0.6, in the normal range. Bone mineral density measurements of the left hip correspond to a total T-score of -0.8. The femora l neck T-score is -1.9, in the osteopenic range.. Theleft forearm was not scanned. IMPRESSION: Normal bone mineral density of the spine. Osteopenia of the hip.
== END 2024-03-28 02:43 ==
LOC: DI 02:23
PROVIDERS: PCP Nurse Practitioner Family; Visit Provider Nurse Practitioner Family
DX: Z78.0 Asymptomatic menopausal state (principal); M85.852 Other specified disorders of bone density and structure, left thigh
CPT/HCPCS: 77080

== ENCOUNTER 2024-04-03 10:44 | Outpatient (CLI) | payer MEDICARE, SELFPAY ==
[2024-04-03 12:40] LABS: Uric Acid 3.9 mg/dL (2.6-6.0)
[2024-04-03 17:39] LABS: Rheumatoid Factor <8.6 IU/mL (<12.0)
== END 2024-04-03 10:45 | disposition home or self-care (01) ==
LOC: LOS 10:44
PROVIDERS: PCP Nurse Practitioner Family; Referring Provider Family Medicine; Visit Provider Family Medicine
DX: M25.531 Pain in right wrist (principal); R70.0 Elevated erythrocyte sedimentation rate; I49.9 Cardiac arrhythmia, unspecified
CPT/HCPCS: 36415; 84550; 86431

== ENCOUNTER 2024-04-05 00:40 | Outpatient (CLI) | payer MEDICARE, SELFPAY ==
--- NOTE | 2024-04-05 11:30 | DI.CT_ITS ---
Exam(s) CT UPPER EXTREMITY RT WO EXAM: CT UPPER EXTREMITY RT WO CLINICAL HISTORY: right wrist pain; negative xrays at weeks, ESR 78,m25.531,r70.0. TECHNIQUE: Imaging Protocol: Axial computed tomography images with coronal and sagittal reformatted images were created and reviewed. COMPARISON: No exams were available for comparison FINDINGS: Examination is limited due to patient positioning. The patient's arm was by their side. Bones: Within the limits of the examination no definite fracture is appreciated. Bony alignment is satisfactory. No cellulitic or osteomyelitic changes are identified. There is chondrocalcinosis see n in the radiocarpal joint. At the 1st CMC joint, there are mild degenerative changes present. No l ytic or sclerotic lesions are identified. Soft Tissues: Normal. IMPRESSION: 1. Examination is limited due to patient's positioning. The patient was unable to bring the arm abov e the head. The patient's arms by there are side. 2. Within the limits of the examination, no definite fractures appreciated. If there is continued co ncern, a repeat examination may be obtained. 3. Arthritic changes seen in the wrist that are most consistent with osteoarthritis. RADIATION DOSE DELIVERED: 297.64mGy.cm Total DLP 297.64mGy.cm Total DLP DATA REPOSITORY: All CT scans at this facility are submitted to the National Radiology Data Registry (NRDR) Dose Index Registry (DIR) with the [employer] ([employer]). RADIATION OPTIMIZATION: All CT scans at this facility use at least one of these dose optimization te chniques: automated exposure control; mA and/or kV adjustment per patient size (includes targeted exa ms where dose is matched to clinical indication); or iterative reconstruction.
== END 2024-04-05 01:00 ==
LOC: DI 00:40
PROVIDERS: PCP Nurse Practitioner Family; Visit Provider Family Medicine
DX: M25.531 Pain in right wrist (principal); R70.0 Elevated erythrocyte sedimentation rate
CPT/HCPCS: 73200

== ENCOUNTER 2024-04-30 14:41 | Outpatient (REF) | payer MEDICARE, SELFPAY ==
[2024-04-30 22:08] LABS: ESR 63 mm/hr (0-30)
[2024-04-30 22:10] LABS: ALT 18 U/L (14-59); AST 15 U/L (15-37); Albumin 3.8 g/dL (3.4-5.0); Alkaline Phosphatase 116 U/L (46-116); Anion Gap 8.3 mmol/L (3-11); BUN 16 mg/dL (7-18); Bilirubin, Total 0.37 mg/dL (0.2-1.0); CO2 29.7 mmol/L (21.0-32.0); CREATININE 0.8 mg/dL (0.55-1.02); Calcium 9.6 mg/dL (8.5-10.1); Calculated LDL 130 mg/dL (<100); Chloride 101 mmol/L (98-107); Cholesterol 204 mg/dL (<200); Estimated GFR 78.24 (mL/min/1.73m2); Glucose 89 mg/dL (74-106); HDL Cholesterol 52 mg/dL (40-60); Potassium 4.5 mmol/L (3.5-5.1); Sodium 139 mmol/L (136-145); Total Protein 7.8 g/dL (6.4-8.2); Triglyceride 113 mg/dL (<150)
[2024-04-30 22:40] LABS: C-Reactive Protein 3.58 mg/dL (<or=0.5)
[2024-05-02 09:00] LABS: Cyclic Citrullinated Peptide <2.5 U/mL (<5.0)
[2024-05-02 10:46] LABS: Hepatitis C Ab w Rflx HCV PCR Negative (Negative)
[2024-05-02 10:56] LABS: HIV-1/2 Ag & Ab Screen Negative (Negative)
[2024-05-02 15:37] LABS: ANA Interpretation Negative (Negative)
== END 2024-04-30 14:42 | disposition home or self-care (01) ==
LOC: LBN 14:41
PROVIDERS: PCP Nurse Practitioner Family; Visit Provider Nurse Practitioner Family
DX: R70.0 Elevated erythrocyte sedimentation rate; Z11.59 Encounter for screening for other viral diseases; Z11.4 Encounter for screening for human immunodeficiency virus [HIV]; E78.5 Hyperlipidemia, unspecified; Z12.39 Encounter for other screening for malignant neoplasm of breast; Z23 Encounter for immunization
CPT/HCPCS: 80053; 80061; 85652; 86200; 86803; 87389; 86038; 86140

== ENCOUNTER 2024-05-10 00:19 | Outpatient (CLI) | payer MEDICARE, SELFPAY ==
--- NOTE | 2024-05-10 11:20 | DI.MAMMO_ITS ---
Exam(s) MAMMO SCREENING EXAM: MAMMO SCREENING CLINICAL HISTORY: screening,z12.39. TECHNIQUE: Bilateral full field digital CC and MLO mammographic images were obtained with 3D tomosyn thesis and utilizing computer aided detection (CAD). COMPARISON: Prior mammograms were reviewed. FINDINGS: There has been no significant change in the appearance and distribution of the fibroglandular tissue. No new left breast findings. Asymmetric density-nodule inferiorly in the right breast unchanged prior mammograms. There are no malignant-appearing microcalcification groups. Scattered benign-appearing microcalcific ations and macrocalcifications again noted throughout both breasts. There is no significant architectural distortion nor skin thickening-retraction. IMPRESSION: Benign findings. No radiographic evidence of malignancy. BI-RADS Category 2 - Benign Findings Breast Density - Category B - Scattered areas of fibroglandular density Breast density Category C or D implies that the patient has dense breast tissue. Dense breast tissue can make it harder to find cancer on a mammogram. Dense breast tissue is also associated with an incr eased risk of breast cancer. This information about the result of the mammogram report was provided to the patient to raise their awareness. Use this report when you speak with the patient about their risks for breast cancer, which includes their family history. At that time, you may recommend additional screening tests (Ultrasoun d or MRI) as these tests may add significant information. A negative radiographic report should not delay biopsy if a dominant or clinically suspicious mass is present. Up to ten percent of cancers are not identified on mammography. A negative report may reinforce clinical impression. Adenosis and dense breasts may obscure an underlying neoplasm. False positive reports average 6 to 10%. Patient will receive a letter notifying them of these results.
== END 2024-05-10 00:39 ==
LOC: DI 00:19
PROVIDERS: PCP Nurse Practitioner Family; Visit Provider Nurse Practitioner Family
DX: Z12.31 Encounter for screening mammogram for malignant neoplasm of breast (principal)
CPT/HCPCS: 77063; 77067

== ENCOUNTER 2024-10-21 02:02 | Outpatient (CLI) | payer MEDICARE, SELFPAY ==
--- NOTE | 2024-10-21 07:15 | DI.CTLCSR_ITS ---
Exam(s) CT CHEST LUNG CANCER SCREEN EXAM: CT CHEST LUNG CANCER SCREEN CLINICAL HISTORY: Screening for lung cancer,cigarette smoker, F17.210 TECHNIQUE: Imaging Protocol: Axial computed tomography images with coronal and sagittal reformatted images were created and reviewed. Low dose screening protocol. COMPARISON: CT CT CHEST LUNG CANCER SCREEN from 10/19/2023 FINDINGS: Tracheobronchial tree: No bronchiectasis or mucus plugging. Mediastinum and Sabrina: No dominant adenopathy or fluid collection. Pulmonary parenchyma: No consolidation or dominant measurable mass. No visible emphysematous changes. No significant interstitial changes. Lung Nodules: Multiple scattered micro nodules. Stable 5 millimeter nodule lateral right upper lobe. There are 2 stable 5 millimeter nodules at the left lower lobe. Stable 6 millimeter nodule right l ower lobe. Stable 7 millimeter nodule at the right lower lobe. Pleura: No effusion. No pneumothorax. Heart: The heart is mildly dilated. Moderate coronary artery calcifications are seen. No pericardial effusion. Aorta: Thoracic aorta non-dilated. Upper abdomen: Unremarkable. Bones: Unremarkable for age. Soft Tissues: Unremarkable. IMPRESSION: Stable bilateral pulmonary nodules. Lung RADS Cat 2 - Benign Appearance / Behavior: Nodules with a very low likelihood of becoming a clin ically active cancer due to size or lack of growth Lung-RADS 1.0 CATEGORIES: Category 0 - Prior chest CT exam(s) being located for comparison. Category 1 - Annual screening in 12 months. No nodules or definitely benign nodules. Category 2 - Annual screening in 12 months. Benign appearance. Nodules with low likelihood of becomin g active cancer. Category 3 - 6-month follow-up. Probably benign. Short-term follow-up suggested. Nodules with low lik elihood of becoming active cancer. Category 4A - 3-month follow-up and CT/PET if >8 mm in size. Suspicious finding. Findings which requi re additional testing. Category 4B - Findings which require additional testing and tissue sampling. Category 4X - Category 3 or 4 nodules with additional features or imaging findings that increases the suspicion of malignancy. Modifier S- Potentially clinically significant findings (non lung cancer) RADIATION DOSE DELIVERED: !Error Total DLP DATA REPOSITORY: All CT scans at this facility are submitted to the National Radiology Data Registry (NRDR) Dose Index Registry (DIR) with the [employer] (ACR). RADIATION OPTIMIZATION: All CT scans at this facility use at least one of these dose optimization te chniques: automated exposure control; mA and/or kV adjustment per patient size (includes targeted exa ms where dose is matched to clinical indication); or iterative reconstruction.
== END 2024-10-21 02:22 ==
LOC: DI 02:02
PROVIDERS: PCP Nurse Practitioner Family; Visit Provider Nurse Practitioner Family
DX: F17.210 Nicotine dependence, cigarettes, uncomplicated (principal); Z12.2 Encounter for screening for malignant neoplasm of respiratory organs; R91.8 Other nonspecific abnormal finding of lung field
CPT/HCPCS: 71271

== ENCOUNTER 2025-05-02 13:07 | Outpatient (CLI) | payer MEDICARE, SELFPAY ==
[2025-05-02 16:40] LABS: ALT 18 U/L (14-59); AST 14 U/L (15-37); Albumin 3.9 g/dL (3.4-5.0); Alkaline Phosphatase 80 U/L (46-116); Anion Gap 9.1 mmol/L (3-11); BUN 17 mg/dL (7-18); Bilirubin, Total 0.6 mg/dL (0.2-1.0); CO2 31.9 mmol/L (21.0-32.0); Calcium 9.2 mg/dL (8.5-10.1); Calculated LDL 113 mg/dL (<100); Chloride 99 mmol/L (98-107); Cholesterol 193 mg/dL (<200); Estimated GFR 91.26 (mL/min/1.73m2); Glucose 118 mg/dL (74-106); HDL Cholesterol 56 mg/dL (>or=50); Potassium 4.0 mmol/L (3.5-5.1); Sodium 140 mmol/L (136-145); Total Protein 7.8 g/dL (6.4-8.2); Triglyceride 121 mg/dL (<150); Vitamin D 25 Total 38 ng/mL (30-100)
== END 2025-05-02 13:08 | disposition home or self-care (01) ==
PROVIDERS: PCP Nurse Practitioner Family; Visit Provider Nurse Practitioner Family
DX: E78.5 Hyperlipidemia, unspecified (principal); E55.9 Vitamin D deficiency, unspecified
CPT/HCPCS: 36415; 80053; 80061; 82306

== ENCOUNTER 2025-05-22 03:43 | Outpatient (CLI) | payer MEDICARE, SELFPAY ==
--- NOTE | 2025-05-22 07:03 | DI.MAMMO_ITS ---
Exam(s) MAMMO SCREENING EXAM: MAMMO SCREENING CLINICAL HISTORY: screening,z12.39 TECHNIQUE: Bilateral full field digital CC and MLO mammographic images were obtained with 3D tomosynthesis and utilizing computer aided detection (CAD). COMPARISON: Comparison is made with prior examinations. FINDINGS: Masses/Architectural Distortion: No suspicious masses or areas of architectural distortion are present. Microcalcifications: No suspicious pleomorphic-type are seen. Skin Thickening/Nipple Retraction: None. IMPRESSION: 1. No significant interval change with no specific features of malignancy noted. 2. Unless there is more urgent need, screening mammography is recommended, as per [employer] guidelines. BI-RADS Category 1 - Negative Breast Density - Category B - There are scattered areas of fibroglandular density. Breast density Category C or D implies that the patient has dense breast tissue. Dense breast tissue can make it harder to find cancer on a mammogram. Dense breast tissue is also associated with an increased risk of breast cancer. This information about the result of the mammogram report was provided to the patient to raise their awareness. Use this report when you speak with the patient about their risks for breast cancer, which includes their family history. At that time, you may recommend additional screening tests (Ultrasound or MRI) as these tests may add significant information. A negative radiographic report should not delay biopsy if a dominant or clinically suspicious mass is present. Up to ten percent of cancers are not identified on mammography. A negative report may reinforce clinical impression. Adenosis and dense breasts may obscure an underlying neoplasm. False positive reports average 6 to 10%. Patient will receive a letter notifying them of these results.
== END 2025-05-22 04:03 ==
LOC: DI 03:44
PROVIDERS: PCP Nurse Practitioner Family; Visit Provider Nurse Practitioner Family
DX: Z12.31 Encounter for screening mammogram for malignant neoplasm of breast (principal)
CPT/HCPCS: 77063; 77067